=== PATIENT | female | born 2000 | race African-American/Black ===

== ENCOUNTER 2023-04-05 18:05 | Emergency (ER) | payer MEDICAID, SELFPAY ==
[2023-04-05] VITALS (23 sets, daily range): BP systolic 99–118; BP diastolic 61–83; PULSE 71–94; RESP 2–27; TEMP 36.6; O2SAT 56–100; BMI 41.1
--- NOTE | 2023-04-05 18:15 | ECG_ITS ---
The [facility] Test Date: 2023-04-05 Pat Name: clif wright Department: Room: - Gender: Female [employer]: : 2000 Requested By: [id number] Order Number: [id number] Reading MD: DUDLEY SO Measurements Intervals [place] Rate: 75 P: -5 CO: 158 QRS: 72 QRSD: 86 T: 30 QT: 380 QTc: 409 Interpretive Statements 1100 Sinus rhythm 9110 normal ECG No previous ECG available for comparison Electronically Signed On 04-07-2023 13:08:35 EDT by DUDLEY SO
--- NOTE | 2023-04-05 18:16 | CT_ITS ---
The [address] [address] Patient Name: KYLER TALAVERA MRN: [id number] date: 2000 Sex: F Assigned Patient Location: ER Current Patient Location: ER Accession/Order Number: [id number] Exam Date: 04/05/2023 19:28 Report Date: 04/05/2023 20:43 At the request of: PATRIC SHAFFER Procedure: CT head/brain wo con EXAM: CT head/brain wo con HISTORY: Dizziness COMPARISON: None. TECHNIQUE: CT of the head without intravenous contrast. Dose reduction techniques were achieved by using automated exposure control and/or adjustment of mA and/or kV according to patient size and/or use of iterative reconstruction technique. . FINDINGS: The brain parenchyma density is unremarkable. There is no acute intracranial hemorrhage, extra axial fluid collection, midline shift, or mass effect. There is no evidence to suggest acute infarction. The ventricles, sulci, and cisterns are normal in size and configuration, without evidence of hydrocephalus or herniation. The partially visualized paranasal sinuses and mastoid air cells are well pneumatized and clear. There are no suspicious osseous lytic or sclerotic lesions. There are no acute fractures. The extracranial soft tissues are unremarkable. CT/CT head/brain wo con IMPRESSION: No acute intracranial process. Electronically authenticated by: CARLOS SANDERSON Date: 04/05/2023 20:43
--- NOTE | 2023-04-05 18:18 | ED.GENADUL1 ---
HPI - General Adult General Chief complaint: Head Injury Stated complaint: fall Time Seen by Provider: 04/05/23 18:07 Source: patient Mode of arrival: ambulance History of Present Illness HPI narrative: Patient is a 22-year-old female who presents to the emergency department by ambulance from the rehab facility where she is currently a resident for the evaluation of dizziness. She apparently fell last night onto her bottom. There are conflicting reports as to whether or not she hit her head although the patient denies a head injury. She states she fell on her bottom, she has no significant pain to the neck, back, tailbone. Apparently she became abruptly dizzy, lightheaded at the rehab facility and it was recommended she come to the Emergency Room. She denies visual changes. She reported chest pain earlier, she currently has no chest pain, shortness of breath, fevers, chills, nausea, vomiting. She is not concerned for . She is at the rehab facility for marijuana detox . She has not had any urinary symptoms. Related Data Previous Rx's Medication Instructions Recorded meclizine 25 mg chewable tablet 25 mg PO QID PRN dizziness #12 tabs 04/05/23 (Antivert) ondansetron 4 mg disintegrating 4 mg PO Q6H PRN nausea and 04/05/23 tablet vomiting #12 tabs Allergies Allergy/AdvReac Type Severity Reaction Status Date / Time No Known Drug Allergies Allergy Verified 04/05/23 18:07 Review of Systems ROS Constitutional Denies: fever or chills Ears, nose, mouth, and throat Denies: throat pain or neck pain Cardiovascular Reports: chest pain Respiratory Denies: shortness of breath or cough Gastrointestinal Denies: nausea or vomiting Musculoskeletal Denies: back pain, neck pain or extremity pain Integumentary/Breast Denies: rash Neurological Reports: dizziness; Denies: headache Endocrine Denies: excessive urination Hematologic/Lymphatic Denies: easy bruising Exam Narrative Exam Narrative: Gen.: Awake, alert, in no distress; morbidly obese female smiling and following commands Head: Normocephalic, atraumatic ENT: Moist mucous membranes, pupils equal round and reactive with normal extraocular muscle motion, no evidence of facial injury Respiratory: No respiratory distress, lungs clear bilaterally Cardio: Regular rate and rhythm Gastrointestinal: Abdomen is soft, nondistended and nontender to palpation, pelvis is stable Extremities: Moves extremities equally, no injuries noted; patient is able to transfer herself from EMS cart to exam cart and roll herself. Psych: Normal mood and affect Neuro: No focal neuro deficit Skin: Warm, dry, intact Constitutional Vital Signs, click to edit/add: Last Vital Signs Temp 97.8 F 04/05/23 18:07 Pulse 88 04/05/23 21:01 Resp 18 04/05/23 21:21 BP 105/65 04/05/23 21:01 Pulse Ox 99 04/05/23 21:21 O2 Del Method Room Air 04/05/23 18:18 Course Vital Signs Vital signs: Vital Signs Temperature 97.8 F 04/05/23 18:07 Pulse Rate 78 04/05/23 18:07 Respiratory Rate 16 04/05/23 18:07 Blood Pressure 118/83 04/05/23 18:07 Pulse Oximetry 98 04/05/23 18:07 Oxygen Delivery Method Room Air 04/05/23 18:07 Temperature 97.8 F 04/05/23 18:07 Pulse Rate 88 04/05/23 21:01 Respiratory Rate 18 04/05/23 21:21 Blood Pressure 105/65 04/05/23 21:01 Pulse Oximetry 99 04/05/23 21:21 Oxygen Delivery Method Room Air 04/05/23 18:18 Medical Decision Making MDM Narrative Medical decision making narrative: Patient was treated with 2 L of IV fluids, Antivert, Ativan. She maintains normal vital signs. CT of the brain is unremarkable. Lab studies are unremarkable though the patient had an elevated d-dimer cyst she was sent for CT angio of the chest which shows no evidence of acute process. Her drug screen is still positive for cannabinoids, although she states she has been at the rehab facility for one month. She will be discharged with [place], Antivert to follow-up with PCP. Return to the Emergency Room if symptoms change or worsen. No focal neuro deficits in the Emergency Room. She has no altered mental status or confusion. Medical Records Medical records reviewed: Yes I reviewed the patient's medical records Lab Data Lab results reviewed: Yes I reviewed the patient's lab results Labs: Lab Results 04/05/23 04/05/23 04/05/23 Range/Units 18:15 18:20 19:46 WBC 8.6 (4.0-11.0) 10^3/uL RBC 4.03 L (4.20-5.40) 10^6/uL Hgb 10.5 L (12.0-16.0) g/dL Hct 33.1 L (36.0-48.0) % MCV 82.1 (81.0-99.0) fL MCH 26.1 L (26.7-34.0) pg MCHC 31.7 (29.9-35.2) g/dL RDW 14.6 (11.0-15.0) % Plt Count 385 (150-450) 10^3/uL MPV 9.6 (9.5-13.5) fL Neut % (Auto) 53.3 (43.0-75.0) % Lymph % (Auto) 32.7 (20.5-60.0) % [place] % (Auto) 11.0 (1.7-12.0) % Eos % (Auto) 1.9 (0.9-7.0) % Baso % (Auto) 0.6 (0.2-2.0) % Neut # (Auto) 4.6 (1.4-6.5) 10^3/uL Lymph # (Auto) 2.8 (1.2-3.8) 10^3/uL [place] # (Auto) 0.9 H (0.3-0.8) 10^3/uL Eos # (Auto) 0.2 (0.0-0.7) 10^3/uL Baso # (Auto) 0.1 (0.0-0.1) 10^3/uL Abs Immat Gran (auto) 0.04 H (0.00-0.03) 10^3/uL Imm/Tot Granulo (auto) 0.5 (0.0-0.5) % D-Dimer 0.85 H* (<=0.59) mg/L FEU Sodium 136 (136-145) mmol/L Potassium 3.8 (3.5-5.1) mmol/L Chloride 103 (98-107) mmol/L Carbon Dioxide 24.5 (21.0-32.0) mmol/L Anion Gap 12.3 BUN 9.0 (7.0-18.0) mg/dL Creatinine 0.87 (0.55-1.02) mg/dL Est GFR ( Amer) >60 (>=60) Est GFR (Non-Af Amer) >60 (>=60) BUN/Creatinine Ratio 10.3 Glucose 96 (74-106) mg/dL Lactate 2.1 H (0.4-2.0) mmol/L Calcium 8.9 (8.5-10.1) mg/dL Magnesium 1.9 (1.8-2.4) mg/dL Total Bilirubin 0.3 (0.2-1.0) mg/dL AST 16 (15-37) U/L ALT 21 (14-59) U/L Alkaline Phosphatase 73 (46-116) U/L Troponin I High Sens <4.0 L (4.0-51.3) pg/mL Total Protein 7.7 (6.4-8.2) g/dL Albumin 3.4 (3.4-5.0) g/dL Globulin 4.3 g/dL Albumin/Globulin Ratio 0.8 TSH 1.635 (0.358-3.740) uIU/mL Serum HCG, Qual Negative (NEGATIVE) Urine Color Lt. yellow (YELLOW) Urine Clarity Clear (CLEAR) Urine pH 8.0 (5.0-9.0) Ur Specific [place] 1.015 (1.005-1.025) Urine Protein Negative (NEG/TRACE) mg/dL Urine Glucose (UA) Negative (NEGATIVE) mg/dL Urine Ketones Negative (NEGATIVE) mg/dL Urine Occult Blood Negative (NEGATIVE) Urine Nitrite Negative (NEGATIVE) Urine Bilirubin Negative (NEGATIVE) Urine Urobilinogen 0.2 (0.2-1.0) EU/dL Ur Leukocyte Esterase Negative (NEGATIVE) Urine Opiates Screen Negative (NEGATIVE) Ur Buprenorphine Scrn Negative (NEGATIVE) Ur Oxycodone Screen Negative (NEGATIVE) Urine Methadone Screen Negative (NEGATIVE) Ur Propoxyphene Screen Negative (NEGATIVE) Ur Barbiturates Screen Negative (NEGATIVE) U Tricyclic Antidepress Negative (NEGATIVE) Ur Phencyclidine Scrn Negative (NEGATIVE) Ur Amphetamines Screen Negative (NEGATIVE) U Methamphetamines Scrn Negative (NEGATIVE) U Benzodiazepines Scrn Negative (NEGATIVE) Urine Cocaine Screen Negative (NEGATIVE) U Cannabinoids Screen Positive A (NEGATIVE) Ethanol Quant <3 mg/dL 04/05/23 Range/Units 21:17 WBC (4.0-11.0) 10^3/uL RBC (4.20-5.40) 10^6/uL Hgb (12.0-16.0) g/dL Hct (36.0-48.0) % MCV (81.0-99.0) fL MCH (26.7-34.0) pg MCHC (29.9-35.2) g/dL RDW (11.0-15.0) % Plt Count (150-450) 10^3/uL MPV (9.5-13.5) fL Neut % (Auto) (43.0-75.0) % Lymph % (Auto) (20.5-60.0) % [place] % (Auto) (1.7-12.0) % Eos % (Auto) (0.9-7.0) % Baso % (Auto) (0.2-2.0) % Neut # (Auto) (1.4-6.5) 10^3/uL Lymph # (Auto) (1.2-3.8) 10^3/uL [place] # (Auto) (0.3-0.8) 10^3/uL Eos # (Auto) (0.0-0.7) 10^3/uL Baso # (Auto) (0.0-0.1) 10^3/uL Abs Immat Gran (auto) (0.00-0.03) 10^3/uL Imm/Tot Granulo (auto) (0.0-0.5) % D-Dimer (<=0.59) mg/L FEU Sodium (136-145) mmol/L Potassium (3.5-5.1) mmol/L Chloride (98-107) mmol/L Carbon Dioxide (21.0-32.0) mmol/L Anion Gap BUN (7.0-18.0) mg/dL Creatinine (0.55-1.02) mg/dL Est GFR ( Amer) (>=60) Est GFR (Non-Af Amer) (>=60) BUN/Creatinine Ratio Glucose (74-106) mg/dL Lactate 0.7 (0.4-2.0) mmol/L Calcium (8.5-10.1) mg/dL Magnesium (1.8-2.4) mg/dL Total Bilirubin (0.2-1.0) mg/dL AST (15-37) U/L ALT (14-59) U/L Alkaline Phosphatase (46-116) U/L Troponin I High Sens (4.0-51.3) pg/mL Total Protein (6.4-8.2) g/dL Albumin (3.4-5.0) g/dL Globulin g/dL Albumin/Globulin Ratio TSH (0.358-3.740) uIU/mL Serum HCG, Qual (NEGATIVE) Urine Color (YELLOW) Urine Clarity (CLEAR) Urine pH (5.0-9.0) Ur Specific [place] (1.005-1.025) Urine Protein (NEG/TRACE) mg/dL Urine Glucose (UA) (NEGATIVE) mg/dL Urine Ketones (NEGATIVE) mg/dL Urine Occult Blood (NEGATIVE) Urine Nitrite (NEGATIVE) Urine Bilirubin (NEGATIVE) Urine Urobilinogen (0.2-1.0) EU/dL Ur Leukocyte Esterase (NEGATIVE) Urine Opiates Screen (NEGATIVE) Ur Buprenorphine Scrn (NEGATIVE) Ur Oxycodone Screen (NEGATIVE) Urine Methadone Screen (NEGATIVE) Ur Propoxyphene Screen (NEGATIVE) Ur Barbiturates Screen (NEGATIVE) U Tricyclic Antidepress (NEGATIVE) Ur Phencyclidine Scrn (NEGATIVE) Ur Amphetamines Screen (NEGATIVE) U Methamphetamines Scrn (NEGATIVE) U Benzodiazepines Scrn (NEGATIVE) Urine Cocaine Screen (NEGATIVE) U Cannabinoids Screen (NEGATIVE) Ethanol Quant mg/dL Imaging Data CT scan - chest: Attestation: I have reviewed the pertinent imaging results. CT scan - head: Attestation: I have reviewed the pertinent imaging results. ECG Data Attestation: I personally reviewed and interpreted this ECG as follows: (Normal sinus rhythm at a rate of seventy-five, no acute ST elevation or ectopy. EKG reviewed by attending physician) Discharge Plan Discharge Chief Complaint: Head Injury Clinical Impression: Dizziness Patient Disposition: Home, Self-Care Time of Disposition Decision: 21:34 Condition: Good Prescriptions / Home Meds: New meclizine [Antivert] 25 mg tablet,chewable 25 mg PO QID PRN (Reason: dizziness) Qty: 12 0RF ondansetron 4 mg tablet,disintegrating 4 mg PO Q6H PRN (Reason: nausea and vomiting) Qty: 12 0RF Instructions: Lightheadedness (ED), Dizziness (ED) Stand Alone Forms: Portal Instructions Referrals: Physician,Non-Staff, MD [Primary Care Provider] - 1 week Discharge Date/Time: 04/05/23 22:23
[2023-04-05] MEDS: MECLIZINE HCL 12.5 MG TABLET 25 MG PO (18:27)
[2023-04-05] MEDS: 0.9 % SODIUM CHLORIDE 1,000 ML 1000 ML IV ×2 (18:27→20:16)
[2023-04-05 18:35] LABS: Basophils Absolute Auto 0.1 10^3/uL (0.0-0.1); Basophils Percent Auto 0.6 % (0.2-2.0); Eosinophils Absolute Auto 0.2 10^3/uL (0.0-0.7); Eosinophils Percent Auto 1.9 % (0.9-7.0); Hematocrit 33.1 % (36.0-48.0); Hemoglobin 10.5 g/dL (12.0-16.0); Immature Granulocytes Abs Auto 0.04 10^3/uL (0.00-0.03); Immature Granulocytes Pct Auto 0.5 % (0.0-0.5); Lymphocytes Absolute Auto 2.8 10^3/uL (1.2-3.8); Lymphocytes Percent Auto 32.7 % (20.5-60.0); Mean Corpuscular HGB Conc 31.7 g/dL (29.9-35.2); Mean Corpuscular Hemoglobin 26.1 pg (26.7-34.0); Mean Corpuscular Volume 82.1 fL (81.0-99.0); Mean Platelet Volume 9.6 fL (9.5-13.5); Monocytes Absolute Auto 0.9 10^3/uL (0.3-0.8); Neutrophils Absolute Auto 4.6 10^3/uL (1.4-6.5); Neutrophils Percent Auto 53.3 % (43.0-75.0); Platelet Count 385 10^3/uL (150-450); Red Blood Count 4.03 10^6/uL (4.20-5.40); Red Cell Distribution Width 14.6 % (11.0-15.0); White Blood Count 8.6 10^3/uL (4.0-11.0)
[2023-04-05 18:46] LABS: HCG Qualitative NEGATIVE (NEGATIVE)
[2023-04-05 18:59] LABS: Lactate/Lactic Acid 2.1 mmol/L (0.4-2.0)
[2023-04-05 19:01] LABS: Alanine Aminotransferase 21 U/L (14-59); Albumin Globulin Ratio 0.8; Albumin Level 3.4 g/dL (3.4-5.0); Alkaline Phosphatase 73 U/L (46-116); Anion Gap 12.3; Aspartate Amino Transferase 16 U/L (15-37); BUN Creatinine Ratio 10.3; Bilirubin Total 0.3 mg/dL (0.2-1.0); Calcium 8.9 mg/dL (8.5-10.1); Carbon Dioxide 24.5 mmol/L (21.0-32.0); Chloride 103 mmol/L (98-107); Estimated GFR (African America >60 (>=60); Estimated GFR (Non-African Ame >60 (>=60); Ethanol <3 mg/dL; Globulin 4.3 g/dL; Glucose 96 mg/dL (74-106); Magnesium 1.9 mg/dL (1.8-2.4); Potassium 3.8 mmol/L (3.5-5.1); Sodium 136 mmol/L (136-145); Thyroid Stimulating Hormone 1.635 uIU/mL (0.358-3.740); Total Protein 7.7 g/dL (6.4-8.2); Troponin I High Sensitivity <4.0 pg/mL (4.0-51.3)
[2023-04-05 19:33] LABS: D Dimer 0.85 mg/L FEU (<=0.59)
--- NOTE | 2023-04-05 19:33 | CT_ITS ---
[address] [address] Patient Name: KYLER TALAVERA MRN: [id number] date: 2000 Sex: F Assigned Patient Location: ER Current Patient Location: ER Accession/Order Number: [id number] Exam Date: 04/05/2023 19:58 Report Date: 04/05/2023 21:27 At the request of: PATRIC SHAFFER Procedure: CT angio chest EXAM: CT angio chest; [id number] REASON FOR EXAM: chest pain, dizziness, elevated d dimer TECHNIQUE: Helical CT images of the chest were obtained after the administration of IV contrast. Multiplanar reformats and maximum intensity projection images were created at the scanner. Dose reduction technique used: Automated exposure control and/or adjustment of the mA and/or kV according to patient size and/or use of iterative reconstruction technique. COMPARISON: None. FINDINGS: Technical quality: Adequate. Chest: Support devices: None. Visualized Thyroid: No nodules. Chest wall: Within normal limits. Edith/mediastinum/esophagus: No mass. Thoracic lymph nodes: No enlarged supraclavicular, mediastinal, hilar or axillary lymph nodes. Heart and vasculature: -No pulmonary artery filling defect to suggest pulmonary embolism. -No pericardial effusion or aortic aneurysm. 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 Visualized portions of the upper abdomen: Within normal limits. Musculoskeletal: No acute abnormality or suspicious osseous lesion. Lungs/airways: -No significant nodule or infiltrate. -There are a few small benign intrapulmonary lymph nodes. -The central airways are patent. Pleura: No pleural effusion or pneumothorax. CT/CT angio chest IMPRESSION: Negative exam. No pulmonary embolism or any acute cardiopulmonary abnormality demonstrated. Electronically authenticated by: EUNICE MORALES Date: 04/05/2023 21:27
[2023-04-05 19:59] LABS: Bilirubin Urine NEGATIVE (NEGATIVE); Blood Urine NEGATIVE (NEGATIVE); Clarity Urine CLEAR (CLEAR); Color Urine LT. YELLOW (YELLOW); Glucose Urine UA NEGATIVE (NEGATIVE); Ketones Urine NEGATIVE (NEGATIVE); Leukocyte Esterase Urine NEGATIVE (NEGATIVE); Nitrite Urine NEGATIVE (NEGATIVE); Protein Urine NEGATIVE (NEG/TRACE); Specific Gravity Urine 1.015 (1.005-1.025); Urobilinogen Urine 0.2 EU/dL (0.2-1.0)
[2023-04-05 20:00] LABS: Urine Microscopic Indicated NO
[2023-04-05 20:08] LABS: Amphetamine Screen Urine NEGATIVE (NEGATIVE); Barbiturates Screen Urine NEGATIVE (NEGATIVE); Benzodiazepines Screen Urine NEGATIVE (NEGATIVE); Buprenorphine Screen Urine NEGATIVE (NEGATIVE); Cannabinoid Screen Urine POSITIVE (NEGATIVE); Cocaine Screen Urine NEGATIVE (NEGATIVE); Methadone Screen Urine NEGATIVE (NEGATIVE); Methamphetamines Screen Urine NEGATIVE (NEGATIVE); Opiate Screen Urine NEGATIVE (NEGATIVE); Oxycodone Screen Urine NEGATIVE (NEGATIVE); Phencyclidine Screen Urine NEGATIVE (NEGATIVE); Tricyclic Antidepressant Urine NEGATIVE (NEGATIVE)
[2023-04-05] MEDS: LORAZEPAM 2 MG/ML 1 ML VIAL 0.5 MG IV (20:16)
--- NOTE | 2023-04-05 21:21 | PC.NURSE ---
innaccurate reading, unable to delete. pt's sp02 is 99% on room air
[2023-04-05 21:39] LABS: Lactate/Lactic Acid 0.7 mmol/L (0.4-2.0)
== END 2023-04-05 22:23 | disposition home or self-care (01) ==
PROVIDERS: Physician Assistant; Emergency Provider Internal Medicine
DX: R42 Dizziness and giddiness (principal); Z91.81 History of falling; E66.01 Morbid (severe) obesity due to excess calories; Z68.41 Body mass index [BMI] 40.0-44.9, adult
CPT/HCPCS: 36415; 70450; 71275; 80053; 80307; 80320; 81003; 83605; 83735; 84443; 84484; 84703; 85025; 85378; 93005; 96361; 96374; 99285; Q9967